=== PATIENT | female | born 1960 | race Caucasian/White ===

== ENCOUNTER → 2017-08-15 | Outpatient (CLI) | payer OTHER ==
[~2017-08-15] MED LIST: ALBU90OI6 INH; CYCL10 PO; LISI20 PO; NAPR500 PO; Naprosyn375 MG PO; OXYC10ER; OXYC5 PO; Robaxin-750750 MG PO; SENN187 PO
== END | disposition home or self-care (01) ==
LOC: PLD 08:07 → LAB SHORT 08:07
DX: D22.21 Melanocytic nevi of right ear and external auricular canal (principal)
CPT/HCPCS: 88305